=== PATIENT | female | born 1950 | race Caucasian/White ===

== ENCOUNTER → 2021-06-21 12:14 | Outpatient (CLI) | payer MEDICARE, OTHER, SELFPAY ==
--- NOTE | ~2021-06-21 | DEXA_ITS ---
Bone Density Report Name: Kerrie Tsai Age: 71 Sex: Female Ethnicity: White Date of : 1950 Indication: osteopenia; postmenopausal Referring Provider: MAX, JUAN RAMON Study: Bone densitometry was performed. Exam Date: June 21, 2021 Accession number: [id number] Bone Density: Region BMD T-score Z-score Classification AP Spine (L1-L4) 0.918 -1.2 0.9 Osteopenia Femoral Neck (Left) 0.746 -0.9 0.8 Normal Total Hip (Left) 0.866 -0.6 0.8 Normal Femoral Neck (Right) 0.857 0.1 1.8 Normal Total Hip (Right) 0.901 -0.3 1.1 Normal Total Hip Mean 0.884 -0.5 1.0 Normal World Health Organization criteria for BMD impression classify patients as: Normal (T-score at or above -1.0), Osteopenia (T-score between -1.0 and -2.5), or Osteoporosis (T-score at or below -2.5). 10-year Fracture Risk(1): Major Osteoporotic Fracture 7.9% Hip Fracture 0.7% Reported Risk Factors: [place] (), Neck BMD=0.746, BMI=35.6 (1) FRAX(R) Version 3.08. Fracture probability calculated for an untreated patient. Fracture probability may be lower if the patient has received treatment. Previous Exams: Region Exam Age BMD T-score BMD Change BMD Change Date g/cm2 vs Baseline vs Previous AP Spine(L1-L4) 06/21/2021 71 0.918 -1.2 0.039* 0.014 09/13/2016 66 0.904 -1.3 0.026 0.026 06/14/2014 64 0.879 -1.5 Total Hip(Left) 06/21/2021 71 0.866 -0.6 -0.011 -0.041 09/13/2016 66 0.907 -0.3 0.030 0.030 06/14/2014 64 0.877 -0.5 Total Hip(Right) 06/21/2021 71 0.901 -0.3 0.007 -0.034 09/13/2016 66 0.935 -0.1 0.041 0.041 06/14/2014 64 0.893 -0.4 *Denotes significance at 95% confidence level, LSC for AP Spine = 0.022 g/cm2, LSC for Total Hip = 0.027 g/cm2 Clinical Information Provided by Patient: Has used the following medications: Vitamin D, TUMS Patient maximum height was 63 Menopause Age: 47 No regular weight bearing exercise Drinks caffeinated beverages Onset of menses at age 13 Number of children 2 Impression: The patient has low bone mass, based on the Total Spine T-score. The patient has an estimated ten-year risk of hip fracture of 0.7% and an estimated ten-year risk of major fracture of 7.9%, based on the WHO FRAX algorithm. No significant bone loss was observed. Discussion: BONE DENSITY IS LOW AT
--- NOTE | ~2021-06-21 | MM_ITS ---
EXAMINATION: MM screening [facility] BI w eloisa HISTORY: Screening mammogram TECHNIQUE: Craniocaudal and mediolateral oblique 3-D tomosynthesis images were obtained and synthetic 2-D images were generated. CAD analysis was submitted and interpreted. COMPARISON: 12/31/2018 bilateral digital screening mammogram 09/18/2016 diagnostic right mammogram and limited right breast ultrasound 09/13/2016 bilateral digital screening mammogram BREAST PARENCHYMAL COMPOSITION: The breasts are almost entirely fatty. FINDINGS: Stable mild fibroglandular asymmetry. Occasional benign calcifications. There is no evidenc e of suspicious mass, calcification, or architectural distortion to suggest malignancy in either [address]. There has been no suspicious interval change. IMPRESSION: 1. No mammographic evidence of malignancy. 2. Recommend routine screening mammography in one year. BI-RADS Category 2: Benign finding(s). Reviewed, dictated and finalized at location A.
== END ==
PROVIDERS: PCP Family Medicine; Visit Provider Nurse Practitioner
DX: Z12.31 Encounter for screening mammogram for malignant neoplasm of breast (principal); Z78.0 Asymptomatic menopausal state; M85.88 Other specified disorders of bone density and structure, other site
CPT/HCPCS: 77063; 77067; 77080